=== PATIENT | male | born 1940 ===

== ENCOUNTER 2016-06-03 11:56 | Day surgery (SDC) | payer MEDICARE ==
--- NOTE | 2016-06-03 08:38 | History and Physical Report ---
DATE OF EVALUATION: 06/02/2016. CHIEF COMPLAINT AND HISTORY OF CHIEF COMPLAINT: This patient presents with a history of a postlaminectomy radiculitis. 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 A spinal cord stimulator trial on 05/07/2016 resulted in 75 to 90% pain control. Due to the failure of all therapies and the success of the trial he presents today for implantation of a permanent system. PAST MEDICAL HISTORY: Hypothyroidism, hypertension, degenerative arthritis, reflux disease. REVIEW OF SYSTEMS: The patient seems appropriate and in no acute distress. The remainder of the systems review shows degenerative arthritis, fibromyalgia, peripheral vascular disease, renal disease. SOCIAL HISTORY: He denies smoking, social alcohol, or caffeine. FAMILY HISTORY: Hypertension, coronary artery disease. PAST SURGICAL HISTORY: Hernia repair bilaterally, lumbar spinal surgery, thyroid surgery. ALLERGIES: None. MEDICATIONS ON ADMISSION: To be provided. PHYSICAL EXAMINATION: General: Height is 5 feet, 6 inches. Weight is 150 pounds. Vital Signs: Unavailable. HEENT: Within normal limits. Lungs: Clear. Heart: Regular rate and rhythm. Abdomen: Nontender. Musculoskeletal: Examination of the musculoskeletal system shows diffuse tenderness throughout the lumbar spine. Range of motion produces pain to the low back and extending to the lower extremities, right greater than left. Ambulation: No assistive device utilized. Neurologic: Cranial nerves are intact. IMPRESSIONS: 1. POSTLUMBAR LAMINECTOMY SYNDROME, ICD10 CODE M96.1. 2. LUMBAR RADICULITIS, ICD10 CODE M54.16 AND M54.17. PLANS: This patient is here, after the failure of all therapies and the success of the stimulator trial, for implantation of a permanent system. The procedure will be considered outpatient, although an overnight stay will be evaluated. All of the potential risks, side effects, and complications have been reviewed and discussed. He has the appropriate documentation including a CD-ROM and booklet from the care transition mgr explaining the risks, side effects, and complications. Dural puncture, spinal headache, epidural blood patch, nerve root injuries, and spinal cord injuries have all been reviewed and discussed. The patient and his understand and have consented. Will perform the procedure based upon the trial. Christian Calderon D.O. Date Time JOB NUMBER: [id number] cc: Dr. Shira RODRIGUEZ
[~2016-06-03 11:56] MED LIST: ACETAMINOPHEN 1000MG/100 ML PREMIX IV ONE; CEFAZOLIN 2 Gram 50 ML IVPB ONE; FAMOTIDINE 20MG TABLET PO ONE; MECLIZINE 25 MG TABLET PO ONE; METOCLOPRAMIDE 10 MG TABLET PO ONE
[2016-06-03] MEDS ORDERED: BUPIVACAINE 0.5% W/EPI MPF 30 ML VIAL IVP ONE (14:00)
[2016-06-03] MEDS ORDERED: LIDOCAINE 1% W/EPI 1:200,000 MPF 30ML SQ ONE (14:00)
[2016-06-03] MEDS ORDERED: CEFAZOLIN 1G VIAL IM ONE (14:00)
[2016-06-03] MEDS ORDERED: ACETAMINOPHEN 325 MG TAB PO PRN ×2 (16:28)
[2016-06-03] MEDS ORDERED: HYDROMORPHONE HCL 1 MG/ML CPJ IM PRN (16:28)
[2016-06-03] MEDS ORDERED: TEMAZEPAM 15 MG CAPSULE PO PRN ×2 (16:28)
[2016-06-03] MEDS ORDERED: DIPHENHYDRAMINE HCL IV 50 MG/ML VIAL IVP PRN ×2 (16:28)
[2016-06-03] MEDS ORDERED: METOCLOPRAMIDE 10 MG TABLET PO PRN (16:28)
[2016-06-03] MEDS ORDERED: OXYCODONE/APAP 10MG-325MG TABLET PO PRN ×2 (16:28)
[2016-06-03] MEDS ORDERED: SENNOSIDES/DOCUSATE SODIUM UD CAPSULE PO PRN ×2 (16:28)
[2016-06-03] MEDS ORDERED: AL HYDROX/MAG HYDROX 30ML UD PO PRN (16:28)
[2016-06-03] MEDS ORDERED: METOCLOPRAMIDE HCL 10 MG/2 ML VIAL IVP PRN (16:28)
[2016-06-03] MEDS ORDERED: HYDROCODONE/APAP 7.5/325MG TABLET PO PRN (16:28)
[2016-06-03] MEDS ORDERED: DIPHENHYDRAMINE HCL 25 MG CAPSULE PO PRN ×2 (16:28)
[2016-06-03] MEDS ORDERED: HYDROMORPHONE HCL 2 MG/ML VIAL IM PRN (16:28)
[2016-06-03] MEDS ORDERED: HYDROMORPHONE HCL 2 MG/ML VIAL IV ONE (16:48)
[2016-06-03] MEDS ORDERED: PROPOFOL 10 MG/ML VIAL IV ONE (16:48)
[2016-06-03] MEDS ORDERED: MIDAZOLAM HCL 2MG/2ML VIAL IV ONE (16:48)
[2016-06-03] MEDS ORDERED: FENTANYL PF 100MCG/2ML VIAL IV ONE (16:48)
[2016-06-03] MEDS ORDERED: TRAZODONE 50 MG TABLET PO SCH (22:00)
[2016-06-03] MEDS: LISINOPRIL 20 MG TABLET PO SCH ×2 (22:38→22:40)
[2016-06-03] MEDS: CEFAZOLIN 2 Gram 50 ML IVPB SCH (22:38)
[2016-06-03] MEDS: 0.9 % SODIUM CHLORIDE 10ML SYR IVP SCH (23:30)
[2016-06-04] MEDS: HYDROCODONE/APAP 7.5/325MG TABLET PO PRN ×2 (01:53→07:46)
[2016-06-04] MEDS: CEFAZOLIN 2 Gram 50 ML IVPB SCH (06:53)
[2016-06-04] MEDS ORDERED: HYDROCHLOROTHIAZIDE 25 MG TABLET PO SCH (10:00)
[2016-06-04] MEDS ORDERED: ATENOLOL 50 MG TABLET PO SCH (10:00)
[2016-06-04] MEDS ORDERED: CHLORTHALIDONE 25 MG TABLET PO SCH (10:00)
[2016-06-04] MEDS: 0.9 % SODIUM CHLORIDE 10ML SYR IVP SCH (10:13)
--- NOTE | 2016-06-04 15:46 | Operative Note - [place] ---
DATE OF SURGERY: 06/03/16 PREOPERATIVE DIAGNOSES: 1. POST LUMBAR LAMINECTOMY SYNDROME, ICD-10 CODE = M96.1. 2. LUMBAR RADICULITIS, ICD-10 CODE = M54.16 AND M54.17. OPERATION: 1. FLUOROSCOPICALLY-GUIDED EPIDURAL ACCESS RIGHT T12/L1, PLACEMENT OF SPINAL CORD STIMULATOR LEAD 1, A [employer] INFINION 16 WITH 16 ELECTRODES POSITIONED LEFT T7. 2. COMPLEX PROGRAMMING LEAD 1, 20 MINUTES. 3. FLUOROSCOPICALLY-GUIDED EPIDURAL ACCESS RIGHT T11/12, PLACEMENT OF SPINAL CORD STIMULATOR LEAD 2, A [employer] INF[employer] 16 WITH 16 ELECTRODES POSITIONED RIGHT T7. 4. COMPLEX PROGRAMMING LEAD 2, 20 MINUTES. 5. INCISION, SUBCUTANEOUS DISSECTION, AND ANCHORING OF LEAD 1 AND LEAD 2 TO SUPRASPINOUS FASCIA USING A [employer] LOCKING ANCHOR. 6. INCISION, SUBCUTANEOUS DISSECTION, AND CREATION OF SUBCUTANEOUS POUCH, RIGHT POSTERIOR GLUTEAL MARGIN FOR PLACEMENT OF GENERATOR IDENTIFIED [employer] PROGRAMMABLE RECHARGEABLE. 7. TUNNELING BETWEEN POUCHES. PLACEMENT OF EXTERNAL PORTION OF LEAD 1 AND LEAD 2 INTO GENERATOR POUCH, EACH LEAD INTERFACED WITH BIFURCATED EXTENSION, EACH BIFURCATED EXTENSION INTERFACED TO GENERATOR. 8. PLACEMENT OF LEADS INTO POUCH, PLACEMENT OF GENERATOR INTO POUCH SECURING TO POSTERIOR FASCIA USING NONABSORBABLE SUTURE AND THEN CLOSURE OF INCISIONS VICRYL FOR FASCIA, RUNNING SUBCUTICULAR VICRYL FOR SKIN. DERMABOND CLOSURE. 9. COMPLEX RECOVERY ROOM PROGRAMMING INTERNAL GENERATOR HOME USE, TWO STIMULATORS, RECOVERY ROOM 20 MINUTES. SURGEON: TIO SEALS D.O. ANESTHESIA: LOCAL SEDATION. ANESTHESIA PROVIDER: SHALOM POTTER CRNA. INDICATION: This patient with a history of post laminectomy radiculitis. Due to the failure of all therapies, a spinal cord stimulator trial was conducted with 75 to 85% pain control. Due to the failure of all therapies and the success of the trial, he presents today for implantation of a permanent system. PROCEDURE: Intravenous line, vital sign monitoring, IV sedation, prepped and draped sterile technique. Under imaging, the epidural interspace from the right at 12/1 and 11/12 was identified, infiltrated with local, and then two separate curved access Epimed needles with [id number] into the space. At T12/1, spinal cord stimulator lead 1, a [employer] Infinion 16 with 16 electrodes positioned left of midline at T7. With epidural access right of the midline at 11/12, also using an Epimed curved access, spinal cord stimulator lead 2, a [employer] Infinion 16 with 16 electrodes, positioned right of the midline T7. Complex programming of lead 1 over 20 minutes and complex programming of lead 2 over 20 minutes ultimately resulting in patterns of stimulation across the back and into the legs; patient indicating we were in all of the appropriate areas of his pain. He was then given the option to implant, continue to program, or remove; he opted to implant. Questions were repeated with the same response. At that point, the skin below both needles was infiltrated, incision made, and subcutaneous dissection was conducted to the supraspinous fascia. Each needle was removed and the lead was anchored to the fascia using a [employer] [place] and nonabsorbable suture. At the right posterior/superior gluteal margin, a site picked by the patient for the generator, skin infiltrated, incision made, and subcutaneous dissection was used to form a pouch of suitable size and depth for the generator. A tunneling tool was used to carry each lead into the generator pouch and then each lead was interfaced with a bifurcated extension, each bifurcated extension then interfaced to the generator. Antibiotic irrigation and Bovie for hemostasis at both incisions. The generator was then placed into the pouch and secured to the fascia with nonabsorbable suture. The leads were then coiled and placed into their own pouch and then the incisions were closed Vicryl for fascia and running subcuticular Vicryl for skin. A Dermabond closure was then used to secure and approximate the edges of the wound. He was transported to the Recovery Room stable showing no side-effects from the procedure or the sedation. When fully awake and alert, complex programming of the internal generator in the Recovery Room over 20 minutes performed, re-establishing stimulation and pain control to all of the appropriate areas. He was instructed on the use of this system, provided with information, error messaging, and then prepared for discharge in the morning because of the time of day and the amount of surgery. DISCHARGE INSTRUCTIONS IN THE MORNIN. The sites will remain clean and dry. No showering or bathing in any way that would disrupt dressings. If it happens, contact the clinic. 2. Standard medications resumed, including the antibiotic, Levaquin, 500 mg once a day for 14 days. 3. His activities to stay low for the next 3-5 days. He will be seen in the office in 5-7 at which point we will clear him for increasing activities. All other instructions provided, numbers to contact, problems given. He will be evaluated and discharged in the morning. TIO SEALS D.O. Date & Time cc: Dr. Bernice Silva [facility]OB NUMBER: [id number] [facility]
== END 2016-06-04 12:04 | disposition home or self-care (01) ==
LOC: SUR 11:56 → MEDSURG 16:49 → SUR 06-04 12:04
PROVIDERS: ATTEND Pain Medicine Interventional Pain Medicine
DX: M96.1 Postlaminectomy syndrome, not elsewhere classified (principal); M54.16 Radiculopathy, lumbar region; M54.17 Radiculopathy, lumbosacral region; I10 Essential (primary) hypertension; E03.9 Hypothyroidism, unspecified
CPT/HCPCS: 95972; 72020; 63685; 63650 ×2; 00300; J3010; J1170; J0690